=== PATIENT | female | born 1990 | race Two or more races ===

== ENCOUNTER 2018-02-19 02:56 | Inpatient (IN) | payer OTHER ==
[~2018-02-19] VITALS: Ht 149.9 cm; Wt 56.2 kg
[2018-02-19] VITALS (15 sets, daily range): BP systolic 101–142; BP diastolic 58–94
[2018-02-19 04:34] LABS: BASOPHIL (%) 0.5 % (0-1); BASOPHIL COUNT 0.1 K/uL (0-0.1); EOSINOPHIL (%) 0.9 % (0-5); EOSINOPHIL COUNT 0.1 K/uL (0-0.3); HEMATOCRIT 39.5 % (36.0-46.0); HEMOGLOBIN 13.8 G/DL (11.9-15.5); IMMATURE GRANULOCYTE (%) 1.1 % (0.0-0.7); LYMPHOCYTE (%) 18.9 % (15-42); LYMPHOCYTE COUNT 2.1 K/uL (1.0-2.8); MCH 32.8 PG (29.0-34.0); MCHC 34.9 G/DL (30.0-36.0); MCV 93.8 FL (83-99); MONOCYTE (%) 8.2 % (3-12); MONOCYTE COUNT 0.9 K/uL (0-0.8); NEUTROPHIL (%) 70.4 % (45-76); NEUTROPHIL COUNT 7.7 K/uL (1.8-6.4); PLATELET COUNT 164 K/uL (156-360); RBC DIS.WIDTH-CV 14.6 % (11.8-14.6); RBC DIS.WIDTH-SD 50.1 % (39-53); RED BLOOD COUNT 4.21 M/uL (3.80-5.20)
[2018-02-19] MEDS ORDERED: PRENATAL TABLE1 EAC3 PO (06:41)
[2018-02-19 10:46] LABS: AMPHETAMINE NEGATIVE (500 ng/mL); BARBITURATES NEGATIVE (200 ng/mL); BENZODIAZEPINES NEGATIVE (150 ng/mL); BUPRENORPHINE NEGATIVE (10 ng/mL); COCAINE NEGATIVE (150 ng/mL); METHADONE NEGATIVE (200 ng/mL); METHAMPHETAMINE NEGATIVE (500 ng/mL); OPIATES (MORPHINE) NEGATIVE (100 ng/mL); OXYCODONE NEGATIVE (100 ng/mL); PHENCYCLIDINE NEGATIVE (25 ng/mL); PROPOXYPHENE NEGATIVE (300 ng/mL); THC CANNABINOIDS NEGATIVE (50 ng/mL); TRICYCLIC ANTIDEPRESSANTS NEGATIVE (300 ng/mL)
[2018-02-20 07:23] LABS: BASOPHIL (%) 0.4 % (0-1); BASOPHIL COUNT 0.1 K/uL (0-0.1); EOSINOPHIL (%) 0.3 % (0-5); HEMATOCRIT 35.5 % (36.0-46.0); IMMATURE GRANULOCYTE (%) 0.6 % (0.0-0.7); LYMPHOCYTE (%) 10.2 % (15-42); LYMPHOCYTE COUNT 1.6 K/uL (1.0-2.8); MCH 32.2 PG (29.0-34.0); MCHC 33.8 G/DL (30.0-36.0); MCV 95.2 FL (83-99); MONOCYTE COUNT 1.1 K/uL (0-0.8); NEUTROPHIL (%) 81.5 % (45-76); NRBC (%) 0.1 /100 WBC (0-0); PLATELET COUNT 134 K/uL (156-360); RBC DIS.WIDTH-CV 14.9 % (11.8-14.6); RED BLOOD COUNT 3.73 M/uL (3.80-5.20); WHITE BLOOD COUNT 15.9 K/uL (4.1-10.2)
[2018-02-20 07:39] VITALS: BP 97/62
[2018-02-20] MEDS ORDERED: IBUPROFEN800 MG PO (12:19)
[2018-02-20] MEDS ORDERED: CAMILA0.35 MG PO (12:22)
[2018-02-20 15:15] VITALS: BP 98/57
== END 2018-02-20 17:30 | disposition home or self-care (01) | DRG 775 ==
LOC: LDRP-OP 02:56 → 2WEST 02:57 → LDRP-OP 04-04 10:53
PROVIDERS: Advanced Practice Midwife
PROC: 0UQMXZZ Repair Vulva, External Approach (ICD-10-PCS; principal; 2018-02-19)
PROC: 10E0XZZ Delivery of Products of Conception, External Approach (ICD-10-PCS; principal; 2018-02-19)
PROC: 0KQM0ZZ Repair Perineum Muscle, Open Approach (ICD-10-PCS; principal; 2018-02-19)
DX: O70.1 Second degree perineal laceration during delivery (principal); O71.82 Other specified trauma to perineum and vulva; O69.1XX0 Labor and delivery complicated by cord around neck, with compression, not applicable or unspecified; Z3A.38 38 weeks gestation of pregnancy; Z37.0 Single live birth
CPT/HCPCS: 85025; J7120